=== PATIENT | female | born 1965 | race Caucasian/White ===

== ENCOUNTER 2017-12-08 21:27 | Inpatient (IN) | payer MEDICARE, OTHER ==
--- NOTE | 2017-12-08 22:21 | ED ---
General Adult HPI - General Chief complaint: Chest Pain Stated complaint: chest pain Time Seen by Provider: 12/08/17 21:43 Source: patient, EMS Mode of arrival: EMS Limitations: no limitations - History of Present Illness Initial comments: Patient is a pleasant 66-year-old female presenting to the emergency department chest discomfort. Onset was just an hour or 2 ago. Discomfort felt like pressure. There was associated dyspnea. Patient has had nausea recently however that was unchanged during this event. Chest discomfort resolved with 3 nitro glycerin by EMS. Patient is near symptom-free at this time. Patient does have a recent diagnosis of urinary tract infection and just started antibiotics yesterday. Patient has had fever and dysuria and urinary frequency. Patient does have myalgias - Related Data Home Medications Medication Instructions Recorded Confirmed Diazepam [Valium] 5 mg PO BID 12/08/17 12/08/17 Enalapril [Vasotec] 2.5 mg PO DAILY 12/08/17 12/08/17 Ibuprofen [Motrin] 800 mg PO Q6HR PRN 12/08/17 12/08/17 Omeprazole 40 mg PO DAILY 12/08/17 12/08/17 Simvastatin [Zocor] 10 mg PO HS 12/08/17 12/08/17 Sulfamethox-Tmp 800-160Mg [Bactrim 1 tab PO Q12HR 12/08/17 12/08/17 DS 800-160 mg] oxyCODONE-APAP 7.5-325MG [Percocet 1 tab PO TID PRN 12/08/17 12/08/17 7.5-325 mg] Allergies Allergy/AdvReac Type Severity Reaction Status Date / Time acetaminophen [From [place]] Allergy Vomiting Verified 12/08/17 21:34 cyclobenzaprine Allergy Unknown Verified 12/08/17 21:34 [From [place]er[place]] hydrocodone [From [place]] Allergy Vomiting Verified 12/08/17 21:34 Review of Systems ROS Statement: Those systems with pertinent positive or pertinent negative responses have been documented in the HPI. ROS Other: All systems not noted in ROS Statement are negative. Constitutional: Reports: fever Eyes: Denies: eye pain ENT: Denies: ear pain Respiratory: Denies: cough Cardiovascular: Reports: chest pain Endocrine: Reports: fatigue Gastrointestinal: Reports: nausea. Denies: abdominal pain Genitourinary: Reports: dysuria, frequency Musculoskeletal: Reports: back pain (Chronic and unchanged) Skin: Denies: rash Neurological: Denies: headache Past Medical History Additional Past Medical History / Comment(s): DJD back and neck History of Any Multi-Drug Resistant Organisms: None Reported Past Surgical History: Cholecystectomy Past Psychological History: No Psychological Hx Reported Smoking Status: Never smoker Past Alcohol Use History: None Reported Past Drug Use History: None Reported General Exam Limitations: no limitations General appearance: alert, in no apparent distress Head exam: Present: atraumatic Eye exam: Present: normal appearance Neck exam: Present: normal inspection. Absent: meningismus Respiratory exam: Present: normal lung sounds bilaterally Cardiovascular Exam: Present: regular rate, normal rhythm Expanded Peripheral pulses: 2+: Radial (R), Radial (L), Posterior Tibialis (R), Posterior Tibialis (L) GI/Abdominal exam: Present: soft. Absent: tenderness Extremities exam: Present: normal inspection. Absent: pedal edema, calf tenderness Back exam: Present: normal inspection Neurological exam: Present: alert Psychiatric exam: Present: normal affect, normal mood Skin exam: Present: normal color Course Vital Signs 12/08/17 12/08/17 12/08/17 21:29 22:43 23:02 Temperature 100.9 F H 99.3 F Pulse Rate 109 H 103 H Respiratory 20 18 Rate Blood Pressure 112/43 106/57 O2 Sat by Pulse 99 98 Oximetry - Reevaluation(s) Reevaluation #1: 12/08/17 23:57 Patient does meet sepsis criteria diagnosed at 2357. Blood culture and lactic acid have been ordered. IV antibiotic's will be ordered. EKG Findings - EKG Comments: EKG Findings:: Normal sinus rhythm 91. SD 126. QRS 92. QT 366. QTc 450. Left axis. Normal QRS. No acute ST change. Medical Decision Making - Medical Decision Making Patient reevaluated and resting comfortably in bed. Patient and family updated on results and plan. Case was discussed in detail with Dr. Mckeon, covering for Dr. kenny, who admits for Dr. Saez. - Lab Data Result diagrams: 12/08/17 21:37 12/08/17 21:37 Lab Results 12/08/17 12/08/17 12/08/17 Range/Units 21:37 21:37 21:37 WBC 14.7 H (3.8-10.6) k/uL RBC 4.66 (3.80-5.40) m/uL Hgb 13.8 (11.4-16.0) gm/dL Hct 41.0 (34.0-46.0) % MCV 88.0 (80.0-100.0) fL MCH 29.7 (25.0-35.0) pg MCHC 33.8 (31.0-37.0) g/dL RDW 12.2 (11.5-15.5) % Plt Count 241 (150-450) k/uL Neutrophils % 68 % Lymphocytes % 21 % Monocytes % 8 % Eosinophils % 0 % Basophils % 0 % Neutrophils # 10.0 H (1.3-7.7) k/uL Lymphocytes # 3.0 (1.0-4.8) k/uL Monocytes # 1.1 H (0-1.0) k/uL Eosinophils # 0.1 (0-0.7) k/uL Basophils # 0.0 (0-0.2) k/uL PT (9.0-12.0) sec INR (<1.2) APTT (22.0-30.0) sec Sodium 139 (137-145) mmol/L Potassium 3.7 (3.5-5.1) mmol/L Chloride 102 (98-107) mmol/L Carbon Dioxide 19 L (22-30) mmol/L Anion Gap 18 mmol/L BUN 25 H (7-17) mg/dL Creatinine 1.70 H (0.52-1.04) mg/dL Est GFR (CKD-EPI)AfAm 39 (>60 ml/min/1.73 sqM) Est GFR (CKD-EPI)NonAf 34 (>60 ml/min/1.73 sqM) Glucose 124 H (74-99) mg/dL Plasma Lactic Acid Juan Alberto (0.7-2.0) mmol/L Calcium 9.4 (8.4-10.2) mg/dL Magnesium 1.9 (1.6-2.3) mg/dL Total Bilirubin 1.1 (0.2-1.3) mg/dL AST 34 (14-36) U/L ALT 29 (9-52) U/L Alkaline Phosphatase 62 (38-126) U/L Total Creatine Kinase 68 (30-135) U/L CK-MB (CK-2) <0.2 (0.0-2.4) ng/mL CK-MB (CK-2) Rel Index Troponin I <0.012 (0.000-0.034) ng/mL Total Protein 7.0 (6.3-8.2) g/dL Albumin 3.9 (3.5-5.0) g/dL Urine Color Urine Appearance (Clear) Urine pH (5.0-8.0) Ur Specific [place] (1.001-1.035) Urine Protein (Negative) Urine Glucose (UA) (Negative) Urine Ketones (Negative) Urine Blood (Negative) Urine Nitrite (Negative) Urine Bilirubin (Negative) Urine Urobilinogen (<2.0) mg/dL Ur Leukocyte Esterase (Negative) Urine RBC (0-5) /hpf Urine WBC (0-5) /hpf Ur Squamous Epith Cells (0-4) /hpf Hyaline Casts (0-2) /lpf Urine Mucus (None) /hpf 12/08/17 12/08/17 12/08/17 Range/Units 21:37 21:37 22:31 WBC (3.8-10.6) k/uL RBC (3.80-5.40) m/uL Hgb (11.4-16.0) gm/dL Hct (34.0-46.0) % MCV (80.0-100.0) fL MCH (25.0-35.0) pg MCHC (31.0-37.0) g/dL RDW (11.5-15.5) % Plt Count (150-450) k/uL Neutrophils % % Lymphocytes % % Monocytes % % Eosinophils % % Basophils % % Neutrophils # (1.3-7.7) k/uL Lymphocytes # (1.0-4.8) k/uL Monocytes # (0-1.0) k/uL Eosinophils # (0-0.7) k/uL Basophils # (0-0.2) k/uL PT 10.6 (9.0-12.0) sec INR 1.1 (<1.2) APTT 20.1 L (22.0-30.0) sec Sodium (137-145) mmol/L Potassium (3.5-5.1) mmol/L Chloride (98-107) mmol/L Carbon Dioxide (22-30) mmol/L Anion Gap mmol/L BUN (7-17) mg/dL Creatinine (0.52-1.04) mg/dL Est GFR (CKD-EPI)AfAm (>60 ml/min/1.73 sqM) Est GFR (CKD-EPI)NonAf (>60 ml/min/1.73 sqM) Glucose (74-99) mg/dL Plasma Lactic Acid Juan Alberto 2.3 H* (0.7-2.0) mmol/L Calcium (8.4-10.2) mg/dL Magnesium (1.6-2.3) mg/dL Total Bilirubin (0.2-1.3) mg/dL AST (14-36) U/L ALT (9-52) U/L Alkaline Phosphatase (38-126) U/L Total Creatine Kinase (30-135) U/L CK-MB (CK-2) (0.0-2.4) ng/mL CK-MB (CK-2) Rel Index Troponin I (0.000-0.034) ng/mL Total Protein (6.3-8.2) g/dL Albumin (3.5-5.0) g/dL Urine Color Yellow Urine Appearance Cloudy H (Clear) Urine pH 6.0 (5.0-8.0) Ur Specific Weir 1.019 (1.001-1.035) Urine Protein 2+ H (Negative) Urine Glucose (UA) Negative (Negative) Urine Ketones Negative (Negative) Urine Blood Moderate H (Negative) Urine Nitrite Negative (Negative) Urine Bilirubin 1+ H (Negative) Urine Urobilinogen 3.0 (<2.0) mg/dL Ur Leukocyte Esterase Large H (Negative) Urine RBC 47 H (0-5) /hpf Urine WBC >182 H (0-5) /hpf Ur Squamous Epith Cells 3 (0-4) /hpf Hyaline Casts 10 H (0-2) /lpf Urine Mucus Few H (None) /hpf Critical Care Time Critical Care Time: Yes Total Critical Care Time: 34 Disposition Clinical Impression: Chest pain, Urinary tract infection, Sepsis Disposition: ADMITTED IP TO THIS HOSP Condition: Serious Is patient prescribed a controlled substance at d/c from ED?: No Referrals: Raquel Saez MD [Primary Care Provider] - 1-2 days Decision Time: 23:58
[2017-12-08] MEDS ORDERED: ASPIRIN 81 MG PO STA (22:23)
[2017-12-08] MEDS ORDERED: ACETAMINOPHEN TAB 500 MG TAB PO STA (22:23)
[2017-12-08] MEDS ORDERED: NITROGLYCERIN OINT 1 INCH/GM PACKET TOPICAL STA (22:23)
[2017-12-08 22:33] LABS: Basophils % (A) 0 %; Eosinophils # (A) 0.1 k/uL (0-0.7); Eosinophils % (A) 0 %; HGB 13.8 gm/dL (11.4-16.0); Lymphocytes % (A) 21 %; MCH 29.7 pg (25.0-35.0); MCHC 33.8 g/dL (31.0-37.0); Mean Platelet Volume 9.1; Monocytes # (A) 1.1 k/uL (0-1.0); Monocytes % (A) 8 %; Neutrophils % (A) 68 %; Platelet Count 241 k/uL (150-450); RBC 4.66 m/uL (3.80-5.40); RDW 12.2 % (11.5-15.5); WBC 14.7 k/uL (3.8-10.6)
[2017-12-08 22:39] LABS: Albumin 3.9 g/dL (3.5-5.0); Calcium 9.4 mg/dL (8.4-10.2); Magnesium 1.9 mg/dL (1.6-2.3); Potassium 3.7 mmol/L (3.5-5.1); Total Bilirubin 1.1 mg/dL (0.2-1.3)
[2017-12-08 22:41] LABS: INR 1.1 (<1.2); Prothrombin Time 10.6 sec (9.0-12.0)
[2017-12-08 22:42] LABS: Creatine Kinase 68 U/L (30-135)
[2017-12-08 22:51] LABS: Appearance,Urine Cloudy (Clear); Bilirubin,Urine 1+ (Negative); Blood,Urine Moderate (Negative); Color,Urine Yellow; Glucose,Urine (UA) Negative (Negative); Hyaline Casts,Urine 10 /lpf (0-2); Ketones,Urine Negative (Negative); Leukocyte Esterase,Urine Large (Negative); Mucus,Urine Few /hpf; Nitrite,Urine Negative (Negative); Protein,Urine 2+ (Negative); RBC,Urine 47 /hpf (0-5); Specific Gravity,Urine 1.019 (1.001-1.035); Squamous Epithelial Cell,Urine 3 /hpf (0-4); WBC,Urine >182 /hpf (0-5)
--- NOTE | 2017-12-08 22:52 | XR ---
EXAMINATION TYPE: XR chest 2V DATE OF EXAM: 12/08/2017 COMPARISON: NONE HISTORY: Chest pain TECHNIQUE: Frontal and lateral views of the chest are obtained. FINDINGS: Heart and mediastinum are normal. Lungs are clear. Diaphragm is normal. Bony thorax is int act. Pulmonary vascularity is normal. There are chest leads. IMPRESSION: Normal chest
[2017-12-08 22:56] LABS: Creatine Kinase MB <0.2 ng/mL (0.0-2.4); Troponin I <0.012 ng/mL (0.000-0.034)
[2017-12-08 23:00] LABS: Partial Thromboplastin Time 20.1 sec (22.0-30.0)
[2017-12-08] MEDS ORDERED: NITROGLYCERIN SL TABS 0.4 MG TAB SUBLINGUAL PRN (23:59)
[2017-12-09] MEDS ORDERED: cefTRIAXone IN SWFI 1,000 MG/10 ML SYRINGE IVP STA
[2017-12-09] MEDS: SODIUM CHLORIDE 0.9% 1,000 ML IV SCH ×3 (01:03→20:29)
[2017-12-09] MEDS: NITROGLYCERIN OINT 1 INCH/GM PACKET TOPICAL SCH ×5 (01:03→23:46)
[2017-12-09 02:51] LABS: Creatine Kinase 70 U/L (30-135)
[2017-12-09 03:04] LABS: Creatine Kinase MB 0.2 ng/mL (0.0-2.4); Troponin I <0.012 ng/mL (0.000-0.034)
[2017-12-09] MEDS ORDERED: cefTRIAXone IN SWFI 1,000 MG/10 ML SYRINGE IVP SCH (09:00)
[2017-12-09 10:53] LABS: Creatine Kinase 61 U/L (30-135)
[2017-12-09 10:54] LABS: Cholesterol 126 mg/dL (<200); HDL Cholesterol 28 mg/dL (40-60); LDL Cholesterol,Calculated 79 mg/dL (0-99); Triglycerides 96 mg/dL (<150)
[2017-12-09 11:05] LABS: Creatine Kinase MB 0.5 ng/mL (0.0-2.4); Troponin I <0.012 ng/mL (0.000-0.034)
--- NOTE | 2017-12-09 12:10 | P.CRDCN ---
History of Present Illness Consult date: 12/09/17 Requesting physician: Ayleen Mckeon Consult reason: chest pain Chief complaint: Chest pain History of present illness: This is a pleasant 52-year-old female with history of hypertension, hyperlipidemia, nondiabetic, who recently was being treated as an outpatient for UTI. She presented to the hospital with chest discomfort. She states that the chest discomfort woke her from sleep, she states like it felt like an elephant sitting on her chest. She did get mildly short of breath and was nauseated. Patient states she's also been running persistent fevers at home and having chills. EKG shows normal sinus rhythm with no acute changes. Chest x-ray normal. White blood cell count 14.7, hemoglobin 13.8, sodium 139, potassium 3.7, BUN 25, creatinine 1.7. Troponins are negative 3. Positive UTI , influenza A and B-. Temperature 100.9 on admission. At the time of my examination this morning, patient denies any chest discomfort, she states that she got relief of the discomfort with nitro on arrival here and has not had any since. Continues to have chills. Past Medical History Past Medical History: Diabetes Mellitus, Hypertension Additional Past Medical History / Comment(s): DJD back and neck, hx of high BP and DM but patient states both are controlled and is no longer taking medication. History of Any Multi-Drug Resistant Organisms: None Reported Past Surgical History: Cholecystectomy Additional Past Surgical History / Comment(s): Bilateral rotator cuff surgery Past Anesthesia/Blood Transfusion Reactions: Previous Problems w/ Anesthesia, Postoperative Nausea & Vomiting (PONV) Additional Past Anesthesia/Blood Transfusion Reaction / Comment(s): N/V Past Psychological History: No Psychological Hx Reported Smoking Status: Never smoker Past Alcohol Use History: None Reported Past Drug Use History: None Reported - Past Family History Mother Family Medical History: No Reported History Medications and Allergies Home Medications Medication Instructions Recorded Confirmed Type Diazepam [Valium] 5 mg PO BID 12/08/17 12/08/17 History Enalapril [Vasotec] 2.5 mg PO DAILY 12/08/17 12/08/17 History Ibuprofen [Motrin] 800 mg PO Q6HR PRN 12/08/17 12/08/17 History Omeprazole 40 mg PO DAILY 12/08/17 12/08/17 History Simvastatin [Zocor] 10 mg PO HS 12/08/17 12/08/17 History Sulfamethox-Tmp 800-160Mg [Bactrim 1 tab PO Q12HR 12/08/17 12/08/17 History DS 800-160 mg] oxyCODONE-APAP 7.5-325MG [Percocet 1 tab PO TID PRN 12/08/17 12/08/17 History 7.5-325 mg] Allergies Allergy/AdvReac Type Severity Reaction Status Date / Time acetaminophen [From [place]] Allergy Vomiting Verified 12/08/17 21:34 cyclobenzaprine Allergy Unknown Verified 12/09/17 00:56 [From Flexeril] hydrocodone [From [place]] Allergy Vomiting Verified 12/08/17 21:34 Iodinated Contrast- Oral and Allergy Rash/Hives Verified 12/09/17 00:57 IV Dye Physical Exam Vitals: Vital Signs Temp Pulse Pulse Resp BP BP BP 12/09/17 08:52 12/09/17 04:00 97.5 F L 73 16 92/60 12/09/17 02:38 98/60 12/09/17 01:49 97/60 12/09/17 01:37 92/58 12/09/17 01:20 97/54 12/09/17 01:11 91/56 12/09/17 00:21 97.1 F L 93 18 94/48 12/09/17 00:00 92 20 95/54 12/08/17 23:02 99.3 F 12/08/17 22:43 103 H 18 106/57 12/08/17 21:29 100.9 F H 109 H 20 112/43 Pulse Ox 12/09/17 08:52 96 12/09/17 04:00 96 12/09/17 02:38 12/09/17 01:49 12/09/17 01:37 12/09/17 01:20 12/09/17 01:11 12/09/17 00:21 98 12/09/17 00:00 95 12/08/17 23:02 12/08/17 22:43 98 12/08/17 21:29 99 Intake and Output 12/08/17 12/09/17 12/09/17 22:59 06:59 14:59 Intake Total 800 Balance 800 Intake: IV 800 Sodium Chloride 0.9% 1, 800 000 ml @ 100 mls/hr IV . Q10H [facility] Rx#:[id number] Other: Voiding Method Toilet Weight 98.43 kg 98.4 kg PHYSICAL EXAMINATION: HEENT: Head is atraumatic, normocephalic. Pupils equal, round. Neck is supple. There is no elevated jugular venous pressure. HEART EXAMINATION: Heart S1, S2 normal. No murmur or gallop heard. CHEST EXAMINATION: Lungs are clear to auscultation and precussion. No chest wall tenderness is noted on palpation or with deep breathing. ABDOMEN: Soft, nontender. Bowel sounds are heard. No organomegaly noted. EXTREMITIES: 2+ peripheral pulses with no evidence of peripheral edema and no calf tenderness noted. NEUROLOGIC patient is awake, alert and oriented -3. . Results 12/08/17 21:37 12/08/17 21:37 Cardiac Enzymes 12/08/17 12/08/17 12/09/17 Range/Units 21:37 21:37 02:15 AST 34 (14-36) U/L CK-MB (CK-2) <0.2 0.2 (0.0-2.4) ng/mL Troponin I <0.012 <0.012 (0.000-0.034) ng/mL 12/09/17 Range/Units 10:13 AST (14-36) U/L CK-MB (CK-2) 0.5 (0.0-2.4) ng/mL Troponin I <0.012 (0.000-0.034) ng/mL Coagulation 12/08/17 Range/Units 21:37 PT 10.6 (9.0-12.0) sec APTT 20.1 L (22.0-30.0) sec Lipids 12/09/17 Range/Units 10:13 Triglycerides 96 (<150) mg/dL Cholesterol 126 (<200) mg/dL HDL Cholesterol 28 L (40-60) mg/dL CBC 12/08/17 Range/Units 21:37 WBC 14.7 H (3.8-10.6) k/uL RBC 4.66 (3.80-5.40) m/uL Hgb 13.8 (11.4-16.0) gm/dL Hct 41.0 (34.0-46.0) % Plt Count 241 (150-450) k/uL Comprehensive Metabolic Panel 12/08/17 Range/Units 21:37 Sodium 139 (137-145) mmol/L Potassium 3.7 (3.5-5.1) mmol/L Chloride 102 (98-107) mmol/L Carbon Dioxide 19 L (22-30) mmol/L BUN 25 H (7-17) mg/dL Creatinine 1.70 H (0.52-1.04) mg/dL Glucose 124 H (74-99) mg/dL Calcium 9.4 (8.4-10.2) mg/dL AST 34 (14-36) U/L ALT 29 (9-52) U/L Alkaline Phosphatase 62 (38-126) U/L Total Protein 7.0 (6.3-8.2) g/dL Albumin 3.9 (3.5-5.0) g/dL Current Medications Generic Name Dose Route Start Last Admin Trade Name Freq PRN Reason Stop Dose Admin Aspirin 325 mg 12/09/17 09:00 Aspirin PO DAILY [facility] Ceftriaxone Sodium 1,000 mg 12/09/17 09:00 Rocephin IVP Q12HR [facility] Sodium Chloride 1,000 mls @ 100 mls/hr 12/08/17 23:45 12/09/17 01:03 Saline 0.9% IV 100 mls/hr .Q10H [facility] Administration Nitroglycerin 1 inch 12/09/17 00:00 12/09/17 06:22 Nitro-Bid Oint TOPICAL Not Given Q6HR [facility] Nitroglycerin 0.4 mg 12/08/17 23:59 Nitrostat SUBLINGUAL Q5M PRN Chest Pain Intake and Output 12/08/17 12/09/17 12/09/17 22:59 06:59 14:59 Intake Total 800 Balance 800 Intake: IV 800 Sodium Chloride 0.9% 1, 800 000 ml @ 100 mls/hr IV . Q10H [facility] Rx#:[id number] Other: Voiding Method Toilet Weight 98.43 kg 98.4 kg 12/08/17 21:37 12/08/17 21:37 EKG Interpretations (text) EKG shows normal sinus rhythm with no acute changes. Assessment and Plan Plan: Assessment and plan #1 chest pain, with some atypical features for acute coronary syndrome. Troponins negative 3. EKG shows normal sinus rhythm with no acute changes. #2 hypertension #3 hyperlipidemia #4 UTI, treated as an outpatient for 3 days on Bactrim. Continues to have fever and elevated white blood cell count #5 renal insufficiency, creatinine 1.7. Plan We will obtain an echocardiogram with Doppler study. Once patient's fever has resolved, recommend she undergo a stress test. We will resume patient's statin that she takes at home. DNP note has been reviewed, I agree with a documented findings and plan of care. Patient was seen and examined.
[2017-12-09] MEDS: ASPIRIN 325 MG TAB PO SCH (12:37)
--- NOTE | 2017-12-09 13:50 | US ---
EXAMINATION TYPE: US kidneys/renal and bladder DATE OF EXAM: 12/09/2017 COMPARISON: NONE CLINICAL HISTORY: r/o polynephritis; UTI, fever, chills, nausea, vomiting EXAM MEASUREMENTS: Right Kidney: 11.9 x 5.6 x 5.0 cm Left Kidney: 11.4 x 5.9 x 5.6 cm Post Void Residual Volume: none measures as bladder emptied. Right Kidney: cortical thickness appears wnl Left Kidney: cortical thickness appears wnl Bladder: wnl Bilateral Jets seen: Yes Normal Post Void Residual: Yes IMPRESSION: NORMAL RENAL ULTRASOUND.
--- NOTE | 2017-12-09 16:26 | P.HPIM ---
History of Present Illness 52-year-old female presenting to the emergency department chest discomfort. Onset was just an hour or 2 ago. Discomfort felt like pressure. There was associated dyspnea. Patient has had nausea recently however that was unchanged during this event. Chest discomfort resolved with 3 nitro glycerin by EMS. Patient is near symptom-free at this time. Patient does have a recent diagnosis of urinary tract infection and just started antibiotics yesterday. Patient has had fever and dysuria and urinary frequency. Patient is on Bactrim at home. Patient chest discomfort is reproducible chest pain not associated the with diaphoresis nonpleuritic in nature. Patient urine analysis is abnormal and consistent with urinary tract infection. Patient's symptoms presently resolved patient's creatinine has worsened because of nonsteroidal and antiplatelet reason Bactrim because of which the stool are being held and patient was a property started on Rocephin. Evaluated regarding the chest pain. Patient still had fevers last night. Ultrasound of the abdomen was obtain because of continued fevers after few days of antibiotic therapy which did not show any nephrolithiasis or pyelonephritis. Review of Systems REVIEW OF SYSTEMS: CONSTITUTIONAL: No fever, no malaise, no fatigue. HEENT: No recent visual problems or hearing problems. Denied any sore throat. CARDIOVASCULAR: No chest pain, orthopnea, PND, no palpitations, no syncope. PULMONARY: No shortness of breath, no cough, no hemoptysis. GASTROINTESTINAL: No diarrhea, no nausea, no vomiting, no abdominal pain. Normoactive bowel sounds. NEUROLOGICAL: No headaches, no weakness, no numbness. HEMATOLOGICAL: Denies any bleeding or petechiae. GENITOURINARY: As mentioned in HPI MUSCULOSKELETAL/RHEUMATOLOGICAL: Denies any joint pain, swelling, or any muscle pain. ENDOCRINE: Denies any polyuria or polydipsia. The rest of the 14-point review of systems is negative. Past Medical History Past Medical History: Diabetes Mellitus, Hypertension Additional Past Medical History / Comment(s): DJD back and neck, hx of high BP and DM but patient states both are controlled and is no longer taking medication. History of Any Multi-Drug Resistant Organisms: None Reported Past Surgical History: Cholecystectomy Additional Past Surgical History / Comment(s): Bilateral rotator cuff surgery Past Anesthesia/Blood Transfusion Reactions: Previous Problems w/ Anesthesia, Postoperative Nausea & Vomiting (PONV) Additional Past Anesthesia/Blood Transfusion Reaction / Comment(s): N/V Past Psychological History: No Psychological Hx Reported Smoking Status: Never smoker Past Alcohol Use History: None Reported Past Drug Use History: None Reported - Past Family History Mother Family Medical History: No Reported History Medications and Allergies Home Medications Medication Instructions Recorded Confirmed Type Diazepam [Valium] 5 mg PO BID 12/08/17 12/08/17 History Enalapril [Vasotec] 2.5 mg PO DAILY 12/08/17 12/08/17 History Ibuprofen [Motrin] 800 mg PO Q6HR PRN 12/08/17 12/08/17 History Omeprazole 40 mg PO DAILY 12/08/17 12/08/17 History Simvastatin [Zocor] 10 mg PO HS 12/08/17 12/08/17 History Sulfamethox-Tmp 800-160Mg [Bactrim 1 tab PO Q12HR 12/08/17 12/08/17 History DS 800-160 mg] oxyCODONE-APAP 7.5-325MG [Percocet 1 tab PO TID PRN 12/08/17 12/08/17 History 7.5-325 mg] Allergies Allergy/AdvReac Type Severity Reaction Status Date / Time acetaminophen [From [place]] Allergy Vomiting Verified 12/08/17 21:34 cyclobenzaprine Allergy Unknown Verified 12/09/17 00:56 [From Flexeril] hydrocodone [From [place]] Allergy Vomiting Verified 12/08/17 21:34 Iodinated Contrast- Oral and Allergy Rash/Hives Verified 12/09/17 00:57 IV Dye Physical Exam Vitals: Vital Signs Temp Pulse Pulse Resp BP BP BP 12/09/17 12:00 78 16 108/67 12/09/17 08:52 12/09/17 08:30 59 L 16 104/64 12/09/17 04:00 97.5 F L 73 16 92/60 12/09/17 02:38 98/60 12/09/17 01:49 97/60 12/09/17 01:37 92/58 12/09/17 01:20 97/54 12/09/17 01:11 91/56 12/09/17 00:21 97.1 F L 93 18 94/48 12/09/17 00:00 92 20 95/54 12/08/17 23:02 99.3 F 12/08/17 22:43 103 H 18 106/57 12/08/17 21:29 100.9 F H 109 H 20 112/43 Pulse Ox 12/09/17 12:00 96 12/09/17 08:52 96 12/09/17 08:30 95 12/09/17 04:00 96 12/09/17 02:38 12/09/17 01:49 12/09/17 01:37 12/09/17 01:20 12/09/17 01:11 12/09/17 00:21 98 12/09/17 00:00 95 12/08/17 23:02 12/08/17 22:43 98 12/08/17 21:29 99 Intake and Output 12/09/17 12/09/17 12/09/17 06:59 14:59 22:59 Intake Total 800 Balance 800 Intake: IV 800 Sodium Chloride 0.9% 1, 800 000 ml @ 100 mls/hr IV . Q10H [facility] Rx#:[id number] Other: Voiding Method Toilet Toilet # Voids 1 Weight 98.4 kg PHYSICAL EXAMINATION: GENERAL: The patient is alert and oriented x3, not in any acute distress. Well developed, well nourished. HEENT: Pupils are round and equally reacting to light. EOMI. No scleral icterus. No conjunctival pallor. Normocephalic, atraumatic. No pharyngeal erythema. No thyromegaly. CARDIOVASCULAR: S1 and S2 present. No murmurs, rubs, or gallops. PULMONARY: Chest is clear to auscultation, no wheezing or crackles. ABDOMEN: Soft, nontender, nondistended, normoactive bowel sounds. No palpable organomegaly. MUSCULOSKELETAL: No joint swelling or deformity. EXTREMITIES: No cyanosis, clubbing, or pedal edema. NEUROLOGICAL: Gross neurological examination did not reveal any focal deficits. SKIN: No rashes. Results CBC & Chem 7: 12/08/17 21:37 12/08/17 21:37 Labs: Abnormal Lab Results - Last 24 Hours (Table) 12/08/17 12/08/17 12/08/17 Range/Units 21:37 21:37 21:37 WBC 14.7 H (3.8-10.6) k/uL Neutrophils # 10.0 H (1.3-7.7) k/uL Monocytes # 1.1 H (0-1.0) k/uL APTT (22.0-30.0) sec Carbon Dioxide 19 L (22-30) mmol/L BUN 25 H (7-17) mg/dL Creatinine 1.70 H (0.52-1.04) mg/dL Glucose 124 H (74-99) mg/dL Plasma Lactic Acid Juan Alberto 2.3 H* (0.7-2.0) mmol/L HDL Cholesterol (40-60) mg/dL Urine Appearance (Clear) Urine Protein (Negative) Urine Blood (Negative) Urine Bilirubin (Negative) Ur Leukocyte Esterase (Negative) Urine RBC (0-5) /hpf Urine WBC (0-5) /hpf Hyaline Casts (0-2) /lpf Urine Mucus (None) /hpf 12/08/17 12/08/17 12/09/17 Range/Units 21:37 22:31 10:13 WBC (3.8-10.6) k/uL Neutrophils # (1.3-7.7) k/uL Monocytes # (0-1.0) k/uL APTT 20.1 L (22.0-30.0) sec Carbon Dioxide (22-30) mmol/L BUN (7-17) mg/dL Creatinine (0.52-1.04) mg/dL Glucose (74-99) mg/dL Plasma Lactic Acid Juan Alberto (0.7-2.0) mmol/L HDL Cholesterol 28 L (40-60) mg/dL Urine Appearance Cloudy H (Clear) Urine Protein 2+ H (Negative) Urine Blood Moderate H (Negative) Urine Bilirubin 1+ H (Negative) Ur Leukocyte Esterase Large H (Negative) Urine RBC 47 H (0-5) /hpf Urine WBC >182 H (0-5) /hpf Hyaline Casts 10 H (0-2) /lpf Urine Mucus Few H (None) /hpf Microbiology - Last 24 Hours (Table) 12/08/17 22:31 Urine Culture - Preliminary Urine,Voided Thrombosis Risk Factor Assmnt - Choose All That Apply Any of the Below Risk Factors Present?: Yes Each Factor Represents 1 point: Age 41-60 years, Obesity (BMI >25) Thrombosis Risk Factor Assessment Total Risk Factor Score: 2 Thrombosis Risk Factor Assessment Level: Low Risk Assessment and Plan Plan: -Sepsis secondary to urinary tract infection patient on Rocephin which will be continued -chest pain we'll rule out acute coronary syndromes coronary artery valid the patient patient appears to have musculoskeletal chest pain. -Hypertension: ELLIOT inhibitor is being held because of renal dysfunction -Hyperlipidemia -Gastroesophageal reflux disease continue with Prilosec -Chronic low back pain: Naproxen will be held because of renal dysfunction -Acute renal failure probably secondary to Bactrim along with nonsteroidal anti- inflammatory medication causing prerenal azotemia
[2017-12-09] MEDS: ATORVASTATIN 10 MG TAB PO SCH (20:29)
[2017-12-09] MEDS: oxyCODONE-APAP 7.5-325MG 1 EACH TAB PO PRN (20:29)
[2017-12-09] MEDS: DIAZEPAM 5 MG TAB PO SCH (20:29)
[2017-12-10 05:19] LABS: HCT 37.4 % (34.0-46.0); HGB 12.6 gm/dL (11.4-16.0); MCHC 33.7 g/dL (31.0-37.0); MCV 92.2 fL (80.0-100.0); Mean Platelet Volume 7.7; Platelet Count 172 k/uL (150-450); RBC 4.06 m/uL (3.80-5.40); RDW 12.3 % (11.5-15.5); WBC 7.5 k/uL (3.8-10.6)
[2017-12-10 05:52] LABS: Potassium 3.9 mmol/L (3.5-5.1)
[2017-12-10] MEDS: NITROGLYCERIN OINT 1 INCH/GM PACKET TOPICAL SCH ×4 (06:22→23:35)
[2017-12-10] MEDS: SODIUM CHLORIDE 0.9% 1,000 ML IV SCH (06:23)
[2017-12-10] MEDS: PANTOPRAZOLE 40 MG TABLET PO SCH (06:24)
[2017-12-10] MEDS ORDERED: cefTRIAXone IN SWFI 1,000 MG/10 ML SYRINGE IVP SCH (09:00)
[2017-12-10] MEDS: ASPIRIN 325 MG TAB PO SCH (10:07)
[2017-12-10] MEDS: DIAZEPAM 5 MG TAB PO SCH ×2 (10:07→20:24)
[2017-12-10] MEDS: oxyCODONE-APAP 7.5-325MG 1 EACH TAB PO PRN ×2 (11:58→20:26)
--- NOTE | 2017-12-10 15:58 | ECHOF ---
Referral Reason:chest pain MEASUREMENTS -------- HEIGHT: 167.6 cm WEIGHT: 98.0 kg BP: 92/60 RVIDd: 2.7 cm (< 3.3) IVSd: 1.0 cm (0.6 - 1.1) LVIDd: 4.3 cm (3.9 - 5.3) LVPWd: 1.2 cm (0.6 - 1.1) IVSs: 1.3 cm LVIDs: 2.7 cm LVPWs: 1.6 cm LAESV Index (A-L): 19.76 ml/m Ao Diam: 3.1 cm (2.0 - 3.7) AV Cusp: 1.9 cm (1.5 - 2.6) LA Diam: 2.7 cm (2.7 - 3.8) EPSS: 0.8 cm MV E Papo: 1.10 m/s MV DecT: 233 ms MV A Papo: 0.87 m/s MV E/A Ratio: 1.25 MV EF SLOPE: 131.56 mm/s (70 - 150) MV EXCURSION: 1.85 cm (> 18.000) FINDINGS -------- Sinus rhythm. This was a technically adequate study. The left ventricular size is normal. There is borderline concentric left ventricular hypertrophy. Overall left ventricular systolic function is normal with, an EF between 55 - 60 %. The right ventricle is normal in size and function. Normal LA size by volume 22+/-6 ml/m2. The right atrium is normal in size. There is mild aortic valve sclerosis. Trace amount of aortic regurgitation. There is no evidence of aortic stenosis. Mild mitral annular calcification present. There is trace mitral regurgitation. Trace tricuspid regurgitation present. Right ventricular systolic pressure is normal at < 35 mmHg. There is no evidence of pulmonary hypertension. Trace/mild (physiologic) pulmonic regurgitation. The aortic root size is normal. Normal inferior vena cava with normal inspiratory collapse consistent with estimated right atrial pre ssure of 5 mmHg. There is no pericardial effusion. CONCLUSIONS -------- 1. Sinus rhythm. 2. This was a technically adequate study. 3. The left ventricular size is normal. 4. There is borderline concentric left ventricular hypertrophy. 5. Overall left ventricular systolic function is normal with, an EF between 55 - 60 %. 6. Normal LA size by volume 22+/-6 ml/m2. 7. There is mild aortic valve sclerosis. 8. Trace amount of aortic regurgitation. 9. Mild mitral annular calcification present. 10. There is trace mitral regurgitation. 11. Trace tricuspid regurgitation present. 12. Right ventricular systolic pressure is normal at < 35 mmHg. 13. There is no evidence of pulmonary hypertension. 14. Trace/mild (physiologic) pulmonic regurgitation. 15. The aortic root size is normal. 16. There is no pericardial effusion. POWER MARKETER: Raúl Christian RDCS
--- NOTE | 2017-12-10 17:49 | P.PN ---
Subjective 52-year-old female was admitted secondary to sepsis, improved symptoms at this time except for fever. Because of the fever will continue to monitor 1 more day I do not expect her urine cultures to be positive as patient was partially treated with Bactrim as an outpatient there is no further intervention that is being planned from cardiology perspective patient will transfer out of stepdown unit. Patient's creatinine improved. Constitutional: Denied any fatigue denied any fever. Cardio vascular: denied any chest pain, palpitations Gastrointestinal denied any nausea vomiting Pulmonary: Denied any shortness of breath cough Neurologic denied any new focal deficits Objective - Vital Signs Vital signs: Vital Signs Temp 100.3 F H 12/10/17 12:00 Pulse 79 12/10/17 12:00 Resp 18 12/10/17 16:00 BP 118/72 12/10/17 12:00 Pulse Ox 99 12/10/17 12:00 Intake & Output 12/09/17 12/10/17 12/10/17 18:59 06:59 18:59 Intake Total 1080 Balance 1080 Weight 100.2 kg Intake: Intake, IV Titration 600 Amount Sodium Chloride 0.9% 1, 600 000 ml @ 100 mls/hr IV . Q10H [facility] Rx#:[id number] Oral 480 Other: Voiding Method Toilet Toilet # Voids 1 1 2 - Exam PHYSICAL EXAMINATION: GENERAL: The patient is alert and oriented x3, not in any acute distress. Well developed, well nourished. HEENT: Pupils are round and equally reacting to light. EOMI. No scleral icterus. No conjunctival pallor. Normocephalic, atraumatic. No pharyngeal erythema. No thyromegaly. CARDIOVASCULAR: S1 and S2 present. No murmurs, rubs, or gallops. PULMONARY: Chest is clear to auscultation, no wheezing or crackles. ABDOMEN: Soft, nontender, nondistended, normoactive bowel sounds. No palpable organomegaly. MUSCULOSKELETAL: No joint swelling or deformity. EXTREMITIES: No cyanosis, clubbing, or pedal edema. NEUROLOGICAL: Gross neurological examination did not reveal any focal deficits. SKIN: No rashes. - Labs CBC & Chem 7: 12/10/17 05:06 12/10/17 05:06 Labs: Abnormal Lab Results - Last 24 Hours (Table) 12/10/17 Range/Units 05:06 Chloride 110 H (98-107) mmol/L Carbon Dioxide 19 L (22-30) mmol/L Microbiology - Last 24 Hours (Table) 12/08/17 22:31 Urine Culture - Final Urine,Voided 12/08/17 21:37 Blood Culture - Preliminary Blood No Growth after 24 hours Assessment and Plan Plan: -Sepsis secondary to urinary tract infection patient on Rocephin which will be continued -chest pain we'll rule out acute coronary syndromes coronary artery valid the patient patient appears to have musculoskeletal chest pain. No further intervention from cardiology perspective -Hypertension: ELLIOT inhibitor is being held because of renal dysfunction -Hyperlipidemia -Gastroesophageal reflux disease continue with Prilosec -Chronic low back pain: Naproxen will be held because of renal dysfunction -Acute renal failure probably secondary to Bactrim along with nonsteroidal anti- inflammatory medication causing prerenal azotemia, which improved now IV fluids will be discontinue secondary to hyperchloremia resulting in acidosis
[2017-12-10] MEDS: ATORVASTATIN 10 MG TAB PO SCH (20:24)
[2017-12-11] MEDS: NITROGLYCERIN OINT 1 INCH/GM PACKET TOPICAL SCH ×2 (05:35→11:21)
[2017-12-11 06:36] VITALS: BP 129/79; PULSE 81; TEMP 98.5
[2017-12-11] MEDS: PANTOPRAZOLE 40 MG TABLET PO SCH (07:38)
[2017-12-11] MEDS: DIAZEPAM 5 MG TAB PO SCH (07:38)
[2017-12-11] MEDS: ASPIRIN 325 MG TAB PO SCH (07:38)
[2017-12-11 08:25] VITALS: RESP 16
[2017-12-11 10:51] LABS: Anion Gap 14 mmol/L; Blood Urea Nitrogen 13 mg/dL (7-17); Calcium 9.6 mg/dL (8.4-10.2); Carbon Dioxide 23 mmol/L (22-30); Chloride 107 mmol/L (98-107); Glucose 118 mg/dL (74-99); Potassium 3.8 mmol/L (3.5-5.1); Sodium 144 mmol/L (137-145)
[2017-12-11] MEDS ORDERED: cefTRIAXone IN SWFI 2,000 MG/20 ML SYRINGE IVP SCH (12:00)
--- NOTE | 2017-12-11 13:01 | P.DS ---
Providers Date of admission: 12/09/17 00:00 Attending physician: Ayleen Mckeon Consults: 12/08/17 23:59 Consult Physician Urgent Consulting Provider: Sujatha Cartwright Consult Reason/Comments: cp Do you want consulting provider notified?: Yes Primary care physician: Raquel Saez [facility] Hospital Course: 52-year-old female was admitted secondary to sepsis, improved symptoms at this time except for fever. Because of the fever will continue to monitor 1 more day I do not expect her urine cultures to be positive as patient was partially treated with Bactrim as an outpatient there is no further intervention that is being planned from cardiology perspective patient will transfer out of stepdown unit. Patient's creatinine improved. 12/01/2017 Patient is feeling much better fever free, patient will be discharged today on Ceftin as patient responded well to Rocephin here. Patient will be given prescription for 5 days completing total course of 7 days of therapy for urinary tract infection sepsis and pyelonephritis. Patient did not require her ELLIOT inhibitor which will be discontinued upon discharge patient was asked to check the blood pressure at home information was given regarding appropriate way to check the blood pressure at home PHYSICAL EXAMINATION: GENERAL: The patient is alert and oriented x3, not in any acute distress. Well developed, well nourished. HEENT: Pupils are round and equally reacting to light. EOMI. No scleral icterus. No conjunctival pallor. Normocephalic, atraumatic. No pharyngeal erythema. No thyromegaly. CARDIOVASCULAR: S1 and S2 present. No murmurs, rubs, or gallops. PULMONARY: Chest is clear to auscultation, no wheezing or crackles. ABDOMEN: Soft, nontender, nondistended, normoactive bowel sounds. No palpable organomegaly. MUSCULOSKELETAL: No joint swelling or deformity. EXTREMITIES: No cyanosis, clubbing, or pedal edema. NEUROLOGICAL: Gross neurological examination did not reveal any focal deficits. SKIN: No rashes. Assessment and Plan Plan: -Sepsis secondary to urinary tract infection improved symptoms with Rocephin -chest pain we'll rule out acute coronary syndromes coronary artery valid the patient patient appears to have musculoskeletal chest pain. No further intervention from cardiology perspective -Hypertension: Will not require any antidepressants medications at home -Hyperlipidemia -Gastroesophageal reflux disease continue with Prilosec -Chronic low back pain: Naproxen will be held because of renal dysfunction. Naproxen can be continued as needed as an outpatient her kidney function improved -Acute renal failure probably secondary to Bactrim along with nonsteroidal anti- inflammatory medication causing prerenal azotemia, which improved now. Patient Condition at Discharge: Serious Plan - Discharge Summary Discharge Rx Participant: Yes New Discharge Prescriptions: New Cefuroxime Axetil [Ceftin] 500 mg PO BID #10 tab Discontinued Enalapril [Vasotec] 2.5 mg PO DAILY No Action Ibuprofen [Motrin] 800 mg PO Q6HR PRN PRN Reason: Pain Sulfamethox-Tmp 800-160Mg [Bactrim DS 800-160 mg] 1 tab PO Q12HR Simvastatin [Zocor] 10 mg PO HS Omeprazole 40 mg PO DAILY oxyCODONE-APAP 7.5-325MG [Percocet 7.5-325 mg] 1 tab PO TID PRN PRN Reason: Pain Diazepam [Valium] 5 mg PO BID Discharge Medication List Diazepam [Valium] 5 mg PO BID 12/08/17 [History] Ibuprofen [Motrin] 800 mg PO Q6HR PRN 12/08/17 [History] Omeprazole 40 mg PO DAILY 12/08/17 [History] Simvastatin [Zocor] 10 mg PO HS 12/08/17 [History] Sulfamethox-Tmp 800-160Mg [Bactrim DS 800-160 mg] 1 tab PO Q12HR 12/08/17 [ History] oxyCODONE-APAP 7.5-325MG [Percocet 7.5-325 mg] 1 tab PO TID PRN 12/08/17 [ History] Cefuroxime Axetil [Ceftin] 500 mg PO BID #10 tab 12/11/17 [Rx] Follow up Appointment(s)/Referral(s): Raquel Saez MD [Primary Care Provider] - 3 Days (office closed, client wants to make own appointment) Patient Instructions/Handouts: Urinary Tract Infection in Women (DC) Discharge Disposition: HOME SELF-CARE
== END 2017-12-11 13:45 | disposition home or self-care (01) | DRG 872 ==
LOC: EC 21:27 → 6SEL 12-09 → 4MS4W 12-10 14:44
PROVIDERS: ADMIT Internal Medicine; ATTEND Internal Medicine
DX: A41.9 Sepsis, unspecified organism (principal); N17.9 Acute kidney failure, unspecified; N39.0 Urinary tract infection, site not specified; N12 Tubulo-interstitial nephritis, not specified as acute or chronic; E78.5 Hyperlipidemia, unspecified; G89.29 Other chronic pain; I10 Essential (primary) hypertension; K21.9 Gastro-esophageal reflux disease without esophagitis; T37.0X5A Adverse effect of sulfonamides, initial encounter; T39.395A Adverse effect of other nonsteroidal anti-inflammatory drugs [NSAID], initial encounter; M54.5 Low back pain; R07.89 Other chest pain; Z88.5 Allergy status to narcotic agent; Z88.6 Allergy status to analgesic agent; Z91.041 Radiographic dye allergy status; Z79.899 Other long term (current) drug therapy; Z79.1 Long term (current) use of non-steroidal anti-inflammatories (NSAID); Z79.891 Long term (current) use of opiate analgesic
CPT/HCPCS: 36415; 71046; 76770; 80048; 80053; 80061; 81001; 82550; 82553; 83605; 83735; 84484; 85025; 85027; 85610; 85730; 87040; 87086; 87502; 93005; 93306; 94760; 96374; 99291